=== PATIENT | male | born 1975 | race Caucasian/White ===

== ENCOUNTER 2018-06-07 06:36 | Day surgery (SDC) | payer BC ==
[2018-06-05 09:58] LABS: Absolute Lymphocytes (CBC) 2.7 K/uL (0.7-4.9); Absolute Monocytes 0.7 K/uL (0.1-1.3); Absolute Neutrophil 3.8 K/uL (1.8-8.0); Basophils % 0.7 % (0-1.3); Eosinophils % 3.2 % (0-4.4); Hematocrit 43.3 % (39.6-49.0); Lymphocytes % 35.7 % (15.3-44.8); MCH 30.1 pg (27.0-35.0); MCV 88.2 fL (80-100); MPV 9.6 fL (7.6-11.3); Monocytes % 9.1 % (3.3-12.3); RBC Red Blood Cell Count 4.91 M/uL (4.33-5.43)
--- NOTE | 2018-06-05 10:37 | RAD REPORT ---
EXAM DESCRIPTION: RAD - Chest Pa And Lat (2 Views) - 06/05/2018 9:39 am CLINICAL HISTORY: PRE OP Chest pain. COMPARISON: No comparisons FINDINGS: The lungs are clear. The heart is normal in size. No displaced fractures. IMPRESSION: No acute or concerning finding suspected.
--- NOTE | 2018-06-05 11:19 | EKG ---
Test Date: 2018-06-05 Test Time: 09:47:14 Archeology Professor: BROCK MEASUREMENT RESULTS: Intervals: Rate: 66 UT: 150 QRSD: 96 QT: 384 QTc: 402 [place]: P: 64 UT: 150 QRS: 98 T: 61 INTERPRETIVE STATEMENTS: Normal sinus rhythm Rightward axis Borderline ECG No previous ECG available for comparison Electronically Signed On 06-05-18 11:19:04 CDT by Wade Garcia
[2018-06-07] MEDS ORDERED: NA CHLORIDE 0.9% 1,000 ML ONE (07:20)
[2018-06-07] MEDS ORDERED: CEFAZOLIN/SWI 1gm 1 GM/10 ML SYR ONE (07:20)
[2018-06-07] MEDS ORDERED: MIDAZOLAM HCL 2 MG/2 ML INJ ONE (08:00)
[2018-06-07] MEDS ORDERED: FENTANYL CITR 100 MCG/2 ML ONE ×2 (08:00→09:24)
[2018-06-07] MEDS ORDERED: PROPOFOL 200 MG/20 ML VIAL IV ONE (08:00)
[2018-06-07] MEDS ORDERED: LIDOCAINE 2% MPF 5 ML VIAL ONE (08:01)
[2018-06-07] MEDS ORDERED: ONDANSETRON HCL 40 MG/20 ML VIAL ONE (08:02)
[2018-06-07] MEDS ORDERED: ROCURONIUM 50 MG/5 ML VIAL IV ONE (08:03)
[2018-06-07] MEDS ORDERED: GLYCOPYRROLATE 0.2 MG/ML SYR ONE (09:50)
[2018-06-07] MEDS ORDERED: NEOSTIGMINE 1 MG/ML -5 ML SYRINGE ONE (09:50)
[2018-06-07] MEDS ORDERED: MEPERIDINE HCL 50 MG/ML AMP ONE (10:20)
--- NOTE | 2018-06-07 11:26 | P.BOP ---
Preoperative diagnosis: tender incarcerated ventral hernia Postoperative diagnosis: same Primary procedure: Open repair of tender incarcerated ventral hernia with mesh Concrete Pile Driver Operator: IGGY COLE (long chain beamer) Estimated blood loss: <20cc Specimen: hernia sac Findings: as above Anesthesia: General Complications: None Implants: ventralex Transferred to: Recovery Room Condition: Good
[2018-06-07] MEDS ORDERED: TRAMADOL HCL 50 MG TAB ONE (11:33)
[2018-06-07] MEDS ORDERED: KETOROLAC 30 MG/ML INJ ONE (12:17)
[2018-06-07] MEDS ORDERED: HYDROCODONE/APAP 10/325 TAB ONE (12:17)
[2018-06-07] MEDS ORDERED: ONDANSETRON 4 MG/2 ML VIAL ONE (12:39)
--- NOTE | 2018-06-07 21:59 | OP ---
Date of Procedure: 06/07/2018 Surgeon: Horacio Watkins MD Drywall Worker: WADE Chris. Preoperative Diagnoses: Tender incarcerated ventral hernia, morbid obesity. Postoperative Diagnoses: Tender incarcerated ventral hernia, morbid obesity. Procedure: Open repair of a tender incarcerated ventral hernia with mesh. Estimated Blood Loss: Less than 20 cc. Specimen: Hernia sac. Findings: Incarcerated omentum and hernia sac. Anesthesia: General plus local. Indication: This is the case of a 43-year-old patient, comes to us with a large hernia over the vent ral region, incarcerated, tender. The patient was fully explained the benefits, alternatives, and ri sks of repair which include, but not limited to infection, bleeding, damage to adjacent structures, a nesthesia complication, recurrence, SD, and even . He also understands this may not relieve his symptoms. He might need more than one surgical intervention. He understands the importance of losi ng weight. He is trying. He understands we might have to use mesh over that region with pros and co ns fully explained to the patient. All the questions were answered to his satisfaction. He did allo w me to use mesh. Description Of Procedure: The patient was brought to the operating room, placed in supine position. Anesthesia was done without complication. Abdominal area was prepped and draped in usual sterile fa shion. Marcaine 0.5% injected for local anesthetic. Prior to that, time-out was called. Incision w as made over the ventral region. Incision was carried down to fascia. The patient has a large herni a present. He is morbidly obese with a large abdominal wall and a lot of volume was on that area. T he opening is small enough to probably be able to close, so we opened the hernia sac. Suture ligated the omentum coming to the area, reduced the rest of the omentum back into the abdominal cavity after fully inspected to make sure there was no bleeding. Hernia sac was removed. The fascia edges need some reinforcement with the mesh due to the consistency of it. So, we decided to use the Ventralex m esh after the fascial edges were completely clear and the strap coming through the incision. The mes h was secured to the fascia using #2-0 Prolene in multiple locations. Then we made sure the bowel wa s not in between. The area was irrigated. Then, after that, I proceeded to clean the fascial edges and made sure the hernia sac was completely removed. The straps were removed off the mesh. The fasc ial edges were approximated with a #1 PDS in a [id number] fashion multiple times. Area was irri gated. Subcutaneous tissue was closed with 3-0 chromic and the skin was approximated with ana. Sponge count and instrument counts were correct. The patient tolerated the procedure well. The josef ent was sent to recovery room in stable condition. JEFF/NANCI Voice ID: [id number] Report ID: [id number]
--- NOTE | 2018-06-07 22:05 | DS ---
Date of Discharge: 06/07/2018 Diagnosis: Tender incarcerated ventral hernia. Procedures: Open repair of a tender incarcerated ventral hernia with mesh. Disposition: Home. Activity: As tolerated. No heavy lifting. Followup: Follow up in my office in 1 week. Call for appointment on [phone]. Keep area dry for 48 hours, then may shower. The patient will apply gauze, replace the dressings after that daily. Medications: See orders. JEFF/NANCI Voice ID: [id number] Report ID: [id number]
== END 2018-06-07 13:05 | disposition home or self-care (01) ==
LOC: OR 06:36
PROVIDERS: ATTEND Surgery
PROC: 0WUF0JZ Supplement Abdominal Wall with Synthetic Substitute, Open Approach (ICD-10-PCS; principal; 2018-06-07 08:15)
DX: K43.6 Other and unspecified ventral hernia with obstruction, without gangrene (principal); E11.9 Type 2 diabetes mellitus without complications; Z88.6 Allergy status to analgesic agent; E66.01 Morbid (severe) obesity due to excess calories; Z68.41 Body mass index [BMI] 40.0-44.9, adult; Z83.3 Family history of diabetes mellitus
CPT/HCPCS: 36415; 71046; 80048; 82962; 85025; 88302; 93005; J0690; J2175; J2250; J2405; J2704; J2710; J3010; J7030